=== PATIENT | male | born 1985 | race Caucasian/White ===

== ENCOUNTER 2016-12-12 15:41 | Emergency (ER) | payer OTHER ==
[~2016-12-12] VITALS: Ht 188 cm; Wt 97.7 kg
[~2016-12-12 15:41] MED LIST: CLINDAMYCIN HC150 MG PO; DULOXETINE HCL30 MG PO; INDERAL20 MG PO; NAPROSYN500 MG PO; PEN-VEE K,VEET500 MG PO; PERIDEX1 ML MM; ULTRACET1 TABLET PO
[2016-12-12 16:46] LABS: HEMATOCRIT 48.7 % (38.0-50.0); MCH 31.6 PG (29.0-34.0); MCHC 35.3 G/DL (30.0-36.0); MCV 89.5 FL (86-99); MEAN PLAT.VOLUME 10.1 uM^3 (9.0-12.4); PLATELET COUNT 209 K/uL (156-360); RBC DIS.WIDTH-CV 11.8 % (11.8-14.6); RBC DIS.WIDTH-SD 38.1 % (39-53); RED BLOOD COUNT 5.44 M/uL (4.00-5.50); WHITE BLOOD COUNT 6.7 K/uL (4.1-10.2)
[2016-12-12 16:55] LABS: CHLORIDE 105 mEq/L (99-109); POTASSIUM 4.2 mEq/L (3.7-5.4); SODIUM 142 mEq/L (136-147)
[2016-12-12 16:58] LABS: GLUCOSE 139 mg/dL (70-99)
[2016-12-12 16:59] LABS: ANION GAP 11 MEQ/L (2-14)
[2016-12-12 17:01] LABS: ALKALINE PHOSPHATASE 47 IU/L (3-129); GFR ESTIMATE (CALCULATED) > 59 mL/min/
[2016-12-12 17:02] LABS: UREA NITROGEN (BUN) 15 mg/dL (9-23)
[2016-12-12 18:23] LABS: LIPASE 39 U/L (1.0-51.0)
[2016-12-12 18:40] LABS: ADD MIUA? NO; BILIRUBIN NEGATIVE; BLOOD NEGATIVE; COLOR YELLOW ((YELLOW)); GLUCOSE (STRIP) NEGATIVE; KETONES 5; LEUKOCYTES NEGATIVE; NITRITE NEGATIVE; PROTEIN (STRIP) NEGATIVE; SPECIFIC GRAVITY 1.019 (1.000-1.030); UCUL ADDED? NO; UROBILINOGEN 0.2 MG/DL (0.2-1.0)
[2016-12-12] MEDS ORDERED: BENTYL20 MG PO (19:34)
[2016-12-12] MEDS ORDERED: MIRALAX255 GM PO (19:34)
[2016-12-12 20:04] VITALS: BP 127/75
== END 2016-12-12 20:05 | disposition home or self-care (01) ==
LOC: EXP 15:41 → EME 15:41 → EXP 20:05
DX: K59.00 Constipation, unspecified (principal); R10.10 Upper abdominal pain, unspecified; R79.89 Other specified abnormal findings of blood chemistry; M79.7 Fibromyalgia; Z87.891 Personal history of nicotine dependence
CPT/HCPCS: 74177; 80053; 81003; 83690; 85027; 99281; 99284; J1885; J2405; J7040

== ENCOUNTER 2016-12-17 08:58 | Emergency (ER) | payer OTHER ==
[~2016-12-17] VITALS: Ht 188 cm; Wt 97.8 kg
[~2016-12-17 08:58] MED LIST changes: +BENTYL20 MG PO; +MIRALAX255 GM PO
[2016-12-17 09:53] LABS: EOSINOPHIL (%) 0.4 % (0-5); HEMATOCRIT 51.8 % (38.0-50.0); IMMATURE GRANULOCYTE (%) 0.5 % (0.0-0.7); IMMATURE GRANULOCYTE COUNT 0.1 K/uL; INSTRUMENT ABS NEUTROPHIL CT 8.2 K/uL; LYMPHOCYTE COUNT 1.3 K/uL (1.0-2.8); MCH 31.5 PG (29.0-34.0); MCHC 35.1 G/DL (30.0-36.0); MCV 89.8 FL (86-99); MONOCYTE (%) 6.1 % (3-12); MONOCYTE COUNT 0.6 K/uL (0-0.8); NEUTROPHIL (%) 80.2 % (45-76); NEUTROPHIL COUNT 8.2 K/uL (1.8-6.4); RBC DIS.WIDTH-CV 11.7 % (11.8-14.6); RBC DIS.WIDTH-SD 37.8 % (39-53); RED BLOOD COUNT 5.77 M/uL (4.00-5.50)
[2016-12-17 09:59] LABS: CHLORIDE 105 mEq/L (99-109); POTASSIUM 4.6 mEq/L (3.7-5.4); SODIUM 143 mEq/L (136-147)
[2016-12-17 10:01] LABS: GLUCOSE 132 mg/dL (70-99)
[2016-12-17 10:02] LABS: ANION GAP 14 MEQ/L (2-14)
[2016-12-17 10:03] LABS: TOTAL BILIRUBIN 0.9 mg/dL (0.0-1.0)
[2016-12-17 10:05] LABS: ALKALINE PHOSPHATASE 53 IU/L (3-129); GFR ESTIMATE (CALCULATED) > 59 mL/min/
[2016-12-17 10:06] LABS: UREA NITROGEN (BUN) 10 mg/dL (9-23)
[2016-12-17 10:08] LABS: LIPASE 34 U/L (1.0-51.0)
[2016-12-17 10:14] LABS: WHITE BLOOD COUNT 10.2 K/uL (4.1-10.2)
[2016-12-17 11:33] LABS: PLAT.SUFFICIENCY DECREASED
[2016-12-17 11:36] LABS: MEAN PLAT.VOLUME 12.4 uM^3 (9.0-12.4); PLATELET COUNT 126 K/uL (156-360)
[2016-12-17] MEDS ORDERED: BENTYL20 MG PO (13:54)
[2016-12-17] MEDS ORDERED: ZOFRAN ODT4 MG PO (13:54)
[2016-12-17 15:12] VITALS: BP 131/88
== END 2016-12-17 15:15 | disposition home or self-care (01) ==
LOC: EME 08:58
PROVIDERS: Emergency Medicine
DX: R10.9 Unspecified abdominal pain (principal); R11.2 Nausea with vomiting, unspecified; M54.9 Dorsalgia, unspecified; Z87.891 Personal history of nicotine dependence
CPT/HCPCS: 80053; 83690; 85025; 99281; 99285; J1885; J2270; J2405; J7030

== ENCOUNTER 2016-12-20 18:33 | Emergency (ER) | payer OTHER ==
[~2016-12-20] VITALS: Ht 188 cm; Wt 96.3 kg
[~2016-12-20 18:33] MED LIST changes: +ZOFRAN ODT4 MG PO
[2016-12-20 19:16] LABS: HEMATOCRIT 48.9 % (38.0-50.0); MCH 31.3 PG (29.0-34.0); MCHC 35.2 G/DL (30.0-36.0); MCV 89.1 FL (86-99); RBC DIS.WIDTH-CV 11.6 % (11.8-14.6); RBC DIS.WIDTH-SD 37.7 % (39-53); RED BLOOD COUNT 5.49 M/uL (4.00-5.50)
[2016-12-20 19:18] LABS: MEAN PLAT.VOLUME 9.9 uM^3 (9.0-12.4); PLATELET COUNT 217 K/uL (156-360)
[2016-12-20 19:23] LABS: CHLORIDE 104 mEq/L (99-109); POTASSIUM 3.7 mEq/L (3.7-5.4); SODIUM 140 mEq/L (136-147)
[2016-12-20 19:25] LABS: GLUCOSE 144 mg/dL (70-99)
[2016-12-20 19:27] LABS: ANION GAP 10 MEQ/L (2-14)
[2016-12-20 19:29] LABS: ALKALINE PHOSPHATASE 53 IU/L (3-129); GFR ESTIMATE (CALCULATED) > 59 mL/min/
[2016-12-20 19:30] LABS: UREA NITROGEN (BUN) 9 mg/dL (9-23)
[2016-12-20 19:32] LABS: LIPASE 35 U/L (1.0-51.0)
[2016-12-20 19:33] LABS: TOTAL BILIRUBIN 1.1 mg/dL (0.0-1.0)
[2016-12-20 20:30] LABS: ADD MIUA? YES; BILIRUBIN NEGATIVE; BLOOD NEGATIVE; COLOR AMBER ((YELLOW)); GLUCOSE (STRIP) NEGATIVE; KETONES NEGATIVE; LEUKOCYTES NEGATIVE; NITRITE NEGATIVE; PROTEIN (STRIP) NEGATIVE; SPECIFIC GRAVITY 1.028 (1.000-1.030); UROBILINOGEN 0.2 MG/DL (0.2-1.0)
[2016-12-20 20:44] LABS: BACTERIA RARE /HPF; CALCIUM OXALATE CRYSTALS 4+ /HPF; EPITHELIAL CELLS RARE /HPF; MUCUS 2+ /LPF; UCUL ADDED? NO; WHITE BLOOD CELLS 0-5 /HPF (0-5)
[2016-12-20] MEDS ORDERED: OMEPRAZOLE40 M1 PO (21:20)
[2016-12-20] MEDS ORDERED: TRAMADOL HCL50 MG PO (21:20)
[2016-12-20 21:37] VITALS: BP 131/84
== END 2016-12-20 21:42 | disposition home or self-care (01) ==
LOC: EME 18:33
DX: R10.11 Right upper quadrant pain (principal); K58.9 Irritable bowel syndrome, unspecified; M79.7 Fibromyalgia; F32.9 Major depressive disorder, single episode, unspecified; Z87.891 Personal history of nicotine dependence
CPT/HCPCS: 76705; 80053; 81003; 83690; 85027; 99281; 99284; J1885

== ENCOUNTER 2016-12-24 08:30 | Inpatient (IN) | payer OTHER ==
[~2016-12-24] VITALS: Ht 188 cm; Wt 95.6 kg
[~2016-12-24 08:30] MED LIST changes: +OMEPRAZOLE40 M1 PO; +TRAMADOL HCL50 MG PO
[2016-12-24 09:32] LABS: HEMATOCRIT 47.9 % (38.0-50.0); MCH 31.5 PG (29.0-34.0); MCHC 35.3 G/DL (30.0-36.0); MCV 89.2 FL (86-99); PLATELET COUNT 228 K/uL (156-360); RBC DIS.WIDTH-CV 11.4 % (11.8-14.6); RBC DIS.WIDTH-SD 36.7 % (39-53); RED BLOOD COUNT 5.37 M/uL (4.00-5.50); WHITE BLOOD COUNT 11.4 K/uL (4.1-10.2)
[2016-12-24 09:44] LABS: CHLORIDE 101 mEq/L (99-109); SODIUM 139 mEq/L (136-147)
[2016-12-24 09:45] LABS: POTASSIUM 4.8 mEq/L (3.7-5.4)
[2016-12-24 09:47] LABS: GLUCOSE 143 mg/dL (70-99)
[2016-12-24 09:50] LABS: ALKALINE PHOSPHATASE 49 IU/L (3-129); GFR ESTIMATE (CALCULATED) > 59 mL/min/
[2016-12-24 09:51] LABS: UREA NITROGEN (BUN) 7 mg/dL (9-23)
[2016-12-24 09:52] LABS: AMYLASE 29 IU/L (1-118)
[2016-12-24 10:01] LABS: LIPASE 15 U/L (1.0-51.0)
[2016-12-24 10:03] LABS: TOTAL BILIRUBIN 1.2 mg/dL (0.0-1.0)
[2016-12-24] MEDS ORDERED: BENTYL20 MG PO ×2 (13:35→22:26)
[2016-12-24] MEDS ORDERED: ZOFRAN ODT4 MG PO (13:36)
[2016-12-24] MEDS ORDERED: MIRALAX17 GM PO (13:36)
[2016-12-24] MEDS ORDERED: OMEPRAZOLE40 M1 PO (13:37)
[2016-12-24] MEDS ORDERED: TRAMADOL HCL50 MG PO (13:37)
[2016-12-24] MEDS ORDERED: VIIBRYD40 MG PO (13:38)
[2016-12-24] MEDS ORDERED: NORVASC5 MG PO ×2 (13:39→22:26)
[2016-12-24] MEDS ORDERED: NEURONTIN300 MG PO (13:41)
[2016-12-24 14:07] VITALS: BP 123/67
[2016-12-24 15:38] VITALS: BP 113/73
[2016-12-24 22:02] VITALS: BP 145/78
[2016-12-25 03:46] VITALS: BP 124/75
[2016-12-25 07:45] VITALS: BP 132/71
[2016-12-25 11:25] VITALS: BP 132/68
[2016-12-25 15:20] VITALS: BP 135/72
[2016-12-25 19:55] VITALS: BP 137/81
[2016-12-25 23:30] VITALS: BP 115/77
[2016-12-26 03:09] VITALS: BP 123/67
[2016-12-26 07:41] VITALS: BP 129/71
[2016-12-26 10:51] LABS: HEMATOCRIT 40.1 % (38.0-50.0); MCH 32.3 PG (29.0-34.0); MCHC 35.7 G/DL (30.0-36.0); MCV 90.5 FL (86-99); MEAN PLAT.VOLUME 9.8 uM^3 (9.0-12.4); PLATELET COUNT 180 K/uL (156-360); RBC DIS.WIDTH-CV 11.6 % (11.8-14.6); RBC DIS.WIDTH-SD 38.4 % (39-53); RED BLOOD COUNT 4.43 M/uL (4.00-5.50); WHITE BLOOD COUNT 9.5 K/uL (4.1-10.2)
[2016-12-26 11:08] LABS: ANION GAP 9 MEQ/L (2-14); CHLORIDE 98 MEQ/L (99-109); POTASSIUM 3.2 MEQ/L (3.7-5.4); SAMPLE HEMOLYSIS CHECK 0; SAMPLE ICTERIC CHECK 0; SAMPLE LIPEMIA CHECK 0; SODIUM 138 MEQ/L (136-147)
[2016-12-26 11:13] LABS: GFR ESTIMATE (CALCULATED) > 59 mL/min/; GLUCOSE 182 mg/dL (70-99); UREA NITROGEN (BUN) 6 mg/dL (9-23)
[2016-12-26 12:00] VITALS: BP 121/75
[2016-12-26 13:33] LABS: DIRECT BILIRUBIN 0.3 mg/dL (0.0-0.3); TOTAL BILIRUBIN 1.2 MG/DL (0.0-1.0)
[2016-12-26 13:39] LABS: ALKALINE PHOSPHATASE 40 IU/L (3-129)
[2016-12-26] MEDS ORDERED: NORCO 5/3251 TABLET PO (14:31)
[2016-12-26] MEDS ORDERED: FLOMAX0.4 MG PO (14:31)
[2016-12-26] MEDS ORDERED: COLACE100 MG PO (14:31)
[2016-12-26] MEDS ORDERED: IBUPROFEN600 MG PO (14:31)
[2016-12-26 15:12] VITALS: BP 120/80
== END 2016-12-26 15:15 | disposition home or self-care (01) | DRG 418 ==
LOC: EME 08:30 → 2EAST 11:54 → EDOF 11:54 → 2EAST 14:01
PROVIDERS: Physician Assistant Surgical
DX: K80.01 Calculus of gallbladder with acute cholecystitis with obstruction (principal); K82.1 Hydrops of gallbladder; K66.0 Peritoneal adhesions (postprocedural) (postinfection); K58.0 Irritable bowel syndrome with diarrhea; F95.2 Tourette's disorder; F32.9 Major depressive disorder, single episode, unspecified; F43.10 Post-traumatic stress disorder, unspecified; M72.2 Plantar fascial fibromatosis; M79.7 Fibromyalgia; Z86.11 Personal history of tuberculosis; Z87.891 Personal history of nicotine dependence
CPT/HCPCS: 74177; 74183; 80048; 80053; 80076; 81003; 82150; 83690; 85027; 88304; 99281; 99285; C9113; J0330; J1170; J1650; J1885; J2250; J2270; J2405; J2543; J2710; J2765; J3010; J7030; J7120

== ENCOUNTER → 2017-03-09 | Outpatient (CLI) | payer OTHER ==
[~2017-03-09] MED LIST changes: +COLACE100 MG PO; +FLOMAX0.4 MG PO; +IBUPROFEN600 MG PO; +MIRALAX17 GM PO; +NEURONTIN300 MG PO; +NORCO 5/3251 TABLET PO; +NORVASC5 MG PO; +VIIBRYD40 MG PO
== END | disposition home or self-care (01) ==
LOC: NUC 02-08 11:00
DX: M53.3 Sacrococcygeal disorders, not elsewhere classified (principal)
CPT/HCPCS: 78315; A9503